=== PATIENT | female | born 1980 | race Caucasian/White ===

== ENCOUNTER 2024-04-15 11:40 | Outpatient (CLI) | payer OTHER, SELFPAY ==
--- NOTE | ~2024-04-15 | CT_ITS ---
EXAMINATION: CT abdomen pelvis wo con DATE: 04/15/2024 12:05 INDICATION: Left flank pain TECHNIQUE: Computed tomography (CT) of the abdomen and pelvis was performed without intravenous contr ast. Automated exposure control and iterative reconstruction technique were employed. The dose-length product was 296.15 mGy-cm. COMPARISON: None FINDINGS: Mild emphysema at the lung bases. Mild discoid atelectasis in the right middle lobe. Heart size is no rmal. No pericardial or pleural effusion. Liver, gallbladder, spleen, pancreas, bilateral adrenal gla nds and kidneys are normal. No urolithiasis or perinephric/periureteral stranding. Bladder and anteve rted uterus are normal. 2 cm right adnexal cyst. There are multiple surgical clips in the the pelvis most prominent near the tip the cecum and in the left adnexal region of the appendix and left ovary n ot clearly identified suggesting prior appendectomy and left oophorectomy respectively. Correlate wit h surgical history. No free intraperitoneal gas or fluid. No pathologically enlarged abdominal or pel beverly lymphadenopathy. Bones are unremarkable. IMPRESSION: 1. No urolithiasis or acute intra-abdominal/pelvic process. Reviewed, dictated and finalized at location A.
== END 2024-04-15 11:41 | disposition home or self-care (01) ==
PROVIDERS: PCP Family Medicine; Visit Provider Family Medicine
DX: R10.9 Unspecified abdominal pain (principal)
CPT/HCPCS: 74176

== ENCOUNTER 2024-04-22 12:23 | Emergency (ER) | payer OTHER, SELFPAY ==
--- NOTE | ~2024-04-22 | XR_ITS ---
EXAMINATION: XR chest 1V portable 04/22/2024 12:52 INDICATION: Left pleuritic chest pain PROCEDURE: AP portable chest COMPARISON: No prior studies for comparison. EXAMINATION: XR chest 1V portable 04/22/2024 12:52 INDICATION: Left pleuritic chest pain PROCEDURE: AP portable chest COMPARISON: No prior studies for comparison. FINDINGS: The lungs are clear. The cardiomediastinal silhouette is within normal limits. There are no pleural effusions. There is no pneumothorax suspected. IMPRESSION: 1: NO ACUTE CARDIOPULMONARY DISEASE. FINDINGS: The lungs are clear. The cardiomediastinal silhouette is within normal limits. There are no pleural effusions. There is no pneumothorax suspected. IMPRESSION: 1: NO ACUTE CARDIOPULMONARY DISEASE. Reviewed, dictated and finalized at location B. IMPRESSION: 1: NO ACUTE CARDIOPULMONARY DISEASE. FINDINGS: The lungs are clear. The cardiomediastinal silhouette is within norm al limits. There are no pleural effusions. There is no pneumothorax suspected .
[2024-04-22 12:23] VITALS: BP 127/54; PULSE 74; RESP 16; TEMP 36.7; O2SAT 99
--- NOTE | 2024-04-22 12:31 | ED.CHESTPAIN ---
HPI - Chest Pain General Chief Complaint: Chest Pain Stated Complaint: uri symptoms Source: patient Mode of arrival: ambulatory Limitations: no limitations History of Present Illness HPI narrative: 43-year-old female, with a 28 pack-year smoking history presents to the ED with a 6 hour history of -- left lower chest pain which radiates to the infra scapular region. Pain is sharp and stabbing and made worse by deep breathing and movement. no fever or chills. Has chronic cough with sputum production without any recent increase in the volume of the sputum or purulence of sputum. No worsening shortness of breath She had a recent left-sided abdominal pain for which she had a CT of abdomen and pelvis which did not show any evidence of stones. -- numbness left lateral leg and foot. MD complaint: chest pain Onset (ago): hour(s) ( 6 hours) Timing of current episode: episodic Prior episodes: No Onset: during rest and during exertion Pain location: left chest Pain radiation: other ( left infra scapular region) Severity: severe Quality: sharp Exacerbating factors: inspiration and movement Treatment prior to arrival: none Risk Factors Coronary artery disease risk factors: smoking history Related Data On Oral Contraceptives: No Home Medications Medication Instructions Recorded Confirmed cyclobenzaprine 10 mg tablet 10 mg PO TID 04/22/24 04/22/24 ketorolac 10 mg tablet 10 mg PO TID 04/22/24 04/22/24 Allergies Allergy/AdvReac Type Severity Reaction Status Date / Time No Known Allergies Allergy Verified 04/22/24 12:39 Exam Narrative: afebrile. Blood pressure stable. Oxygen saturation of 99% on room air with a respiratory rate of 16. Const: General: no acute distress Orientation/consciousness: patient oriented x3 Limitations: no limitations HENMT: Head: normal to inspection Ears: external ears normal Face/Nose/Sinus: Normal external nose present Face and sinus: normal facial exam Mouth: Yes Normal oral and palatal mucosa present Throat: posterior oropharynx normal Eyes: Conjunctivae: conjunctivae normal Pupils: Equal, round and reactive pupils present EOM: EOMs intact bilaterally Direct Ophthalmoscopy: no photophobia Neck: Neck: normal visual inspection and no lymphadenopathy Chest: Chest palpation & inspection: normal inspection of the chest Resp: Effort & Inspection: normal respiratory effort Other: Sharp pain noted on deep inspiration Cardio: Rate: regular rate Rhythm: regular rhythm GI: Auscultation: normal bowel sounds Other: no tenderness/ rigidity /rebound : General: Yes no CVA tenderness Back/Spine/Pelvis: Back: no CVA tenderness Skin: General skin exam: normal color Rashes: no rashes Wounds: no wounds Neuro: General: patient oriented x3, moves all extremities, no meningeal signs and no focal motor deficits Cranial nerves: Yes Nystagmus not present Speech: normal speech Gait exam (Neuro): Normal gait present Extrem: General: normal to inspection and no clubbing, cyanosis or edema Other: SLR is negative. Psych: Mental Status: mental status grossly normal Affect: normal affect Attitude: cooperative Course Course Emergency Course: Left chest pleuritic pain- Patient has a normal white cell count. Chest x-ray is negative. Patient tested negative for influenza/RSV / COVID. Patient has a negative D-dimer. EKG does not show any acute findings. In view of her smoking history will treat her with Motrin and Zithromax Vital Signs Vital signs: Vital Signs Temperature 36.7 C 04/22/24 12:23 Pulse Rate 74 04/22/24 12:23 Respiratory Rate 16 04/22/24 12:23 Blood Pressure 127/54 L 04/22/24 12:23 Pulse Oximetry 99 04/22/24 12:23 Oxygen Delivery Room Air 04/22/24 12:23 Temperature 36.7 C 04/22/24 12:23 Pulse Rate 74 04/22/24 12:23 Respiratory Rate 16 04/22/24 12:23 Blood Pressure 127/54 L 04/22/24 12:23 Pulse Oximetry 9
[2024-04-22 12:36] VITALS: O2SAT 99
--- NOTE | 2024-04-22 12:38 | ECG_ITS ---
Test Date: 2024-04-22 12:53:21 Measurements Intervals [place] Rate: 64 P: 72 LA: 170 QRS: 64 QRSD: 81 T: 75 QT: 385 QTc: 399 Interpretive Statements SINUS RHYTHM POSSIBLE RIGHT VENTRICULAR CONDUCTION DELAY [RSR (QR) IN V1/V2] ABNORMAL ECG No previous ECG available for comparison Electronically Signed On 04-22-2024 14:07:28 CDT by Tom Goldberg M.D.
[2024-04-22] MEDS: KETOROLAC 30 MG/ML VIAL (*BKC) IM (12:52)
[2024-04-22 13:00] LABS: Basophils Absolute Auto 0.07 K/mm3 (0.00-0.10); Basophils Percent Auto 0.7 % (0.0-1.0); Hematocrit 42.1 % (35.0-49.0); Hemoglobin 14.1 g/dL (12.0-15.0); Immature Granulocyte Absolute 0.03 K/mm3 (0.00-0.00); Immature Granulocyte Percent A 0.3 % (0.0-0.0); Lymphocytes Absolute Auto 2.95 K/mm3 (1.10-4.50); Lymphocytes Percent Auto 30.3 % (18.0-42.0); Mean Corpuscular HGB Conc 33.5 g/dL (32-36); Mean Corpuscular Hemoglobin 31.6 pg (27.0-31.0); Mean Corpuscular Volume 94.4 fL (78.0-102.0); Monocytes Absolute Auto 0.52 K/mm3 (0.10-0.90); Monocytes Percent Auto 5.3 % (2.0-11.0); Neutrophils Absolute Auto 6.05 K/mm3 (1.70-7.20); Neutrophils Percent Auto 62.4 % (50.0-70.0); Platelet Count Result 361 K/mm3 (150-420); Red Blood Count 4.46 M/mm3 (4.20-5.40); Red Cell Distribution Width 12.8 % (11.6-14.4); White Blood Count 9.7 K/mm3 (4.8-10.8)
[2024-04-22 13:16] LABS: D Dimer 0.19 mg/L (0.19-0.50); Partial Thromboplastin Time 26.3 Sec (23.9-30.70)
[2024-04-22 13:18] LABS: Lactic Acid Reflex 1.1 mmol/L (0.4-2.0)
[2024-04-22 13:20] LABS: Alanine Aminotransferase 24 U/L (14-59); Albumin Level 3.7 g/dL (3.4-5.0); Alkaline Phosphatase 72 U/L (46-116); Anion Gap 5 mmol/L (4-12); Aspartate Amino Transferase 13 U/L (15-37); Bilirubin,Total 0.3 mg/dL (0.00-1.00); Blood Urea Nitrogen 6 mg/dL (7-18); Calcium 8.6 mg/dL (8.5-10.1); Carbon Dioxide 30 mmol/L (21-32); Chloride 105 mmol/L (98-108); Estimated CRCL calculation 78 ml/min; Estimated Glomerular Filt Rate > 60; Glucose 107 mg/dL (70-99); Osmolality Calculated 287 mOsm/kg (285-295); Potassium 3.9 mmol/L (3.5-5.1); Sodium 140 mmol/L (136-145); Total Protein 6.7 g/dL (6.4-8.2); Troponin I < 4.0 ng/L (0.00-60.4)
[2024-04-22 13:26] LABS: SARS-CoV-2 RNA PCR Negative (Negative)
[2024-04-22 13:28] LABS: Influenza A QL RT-PCR Negative (Negative); Influenza B QL RT-PCR Negative (Negative); RSV RNA, RT-PCR Negative (Negative)
[2024-04-22 13:40] VITALS: BP 112/65; PULSE 60; RESP 14; TEMP 36.7; O2SAT 98
== END 2024-04-22 13:47 | disposition home or self-care (01) ==
PROVIDERS: Emergency Provider Internal Medicine Critical Care Medicine; PCP Physician Assistant
DX: R09.1 Pleurisy (principal); Z79.899 Other long term (current) drug therapy; Z20.822 Contact with and (suspected) exposure to COVID-19
CPT/HCPCS: 36415; 71045; 80053; 83605; 84484; 85025; 85380; 85610; 85730; 87637; 93005; 96372; 99284; J1885